=== PATIENT | female | born 2005 | race Hispanic/Latino ===

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

== ENCOUNTER 2024-09-15 00:57 | Emergency (ER) | payer MEDICAID ==
[~2024-09-15] VITALS: Ht 152.4 cm; Wt 75.3 kg
[2024-09-15] MEDS: FAMOTIDINE 20MG VIAL IV ONE (01:24)
[2024-09-15] MEDS: MAG/ALUM/SIMETH 30 ML UDCUP PO ONE (01:24)
[2024-09-15] MEDS: LIDOCAINE HCL 2% VISCOUS 15 ML UDCUP PO ONE (01:24)
[2024-09-15 01:41] LABS: IMMATURE GRANULOCYTE ABSOLUTE 0.01 K/uL (0-1); NUCLEATED RED BLOOD CELLS 0.0 % (0.0-0.19); PLATELET COUNT (AUTO) 342 K/uL (130-400); RED BLOOD CELL COUNT(AUTO) 4.34 MIL/uL (4.00-5.50); RED CELL DISTRIBUTION WIDTH 17.3 % (11.0-15.5); WHITE BLOOD COUNT (AUTO) 7.1 K/uL (4.8-10.8)
[2024-09-15 01:50] LABS: CREATININE 0.5 mg/dL (0.5-1.0); GLOMERULAR FILTR. RATE CALC 138 mL/min (>90); GLUCOSE,RANDOM 125 mg/dL (70-105); SODIUM SERUM 137 mmol/L (136-145); UREA NITROGEN, BLOOD 8 mg/dL (7-18)
[2024-09-15 02:15] LABS: ASPARTATE AMINOTRANSFERASE 16 U/L (10-37); HCG,QUANTITATIVE 51674 mIU/mL (0-5); TOTAL PROTEIN, SERUM 7.1 g/dL (6.0-8.3)
[2024-09-15] MEDS ORDERED: ONDA-243 PO (02:29)
--- NOTE | 2024-09-15 02:29 | ERN ---
General Chief Complaint: OB<20 weeks gest. Stated Complaint: C/O ABD PAIN ; 8 WKS Time Seen by MD: 01:13 Time Seen by Midlevel: 01:13 Source: patient History of Present Illness Initial Comments Patient is a 18-year-old female who is currently a proximally eight weeks presents to the emergency department for evaluation of midepigastric abdominal pain that started just prior to arrival. Patient reports having history of gastritis and reports having similar episodes in the past. She specifically denies any other symptoms. She does admit to eating spicy food prior to arrival. She last saw her OBGYN one week ago and has an ultrasound scheduled for next week. At this time she has not had any ultrasound performed. Allergies: Coded Allergies: No Known Allergies (Unverified Allergy, Unknown, 09/15/24) Past Medical History Past Medical History: No Pertinent History Past Surgical History: None Female( History) LMP: Jul 20, 2024 : 1 Para: 0 Aborts: 0 ROS Dictation CONSTITUTIONAL: Negative except for HPI HEAD/FACE: Negative except for HPI EENT: Negative except for HPI RESPIRATORY: Negative except for HPI GASTROINTESTINAL/ABDOMINAL: Negative except for HPI GENITOURINARY: Negative except for HPI MUSCULOSKELETAL: Negative except for HPI INTEGUMENTARY: Negative except for HPI NEUROLOGICAL/PSYCH: Negative except for HPI HEMATOLOGIC/LYMPHATIC: Negative except for HPI All Systems Negative, Except as noted above. 13 point review of systems assessed and all negative except for above. Physical Exam Physical Exam Dictation Vital Signs reviewed General Appearance: Alert, oriented x 3, no acute distress, well developed, nourished. Head and Face: non-traumatic. Eyes: PERRL, pink conjunctivas, eyelid no trauma, anterior chamber with arcus senilis. Ears: Pinnas intact and no signs of trauma or erythema ear canals clear and no discharge TM no erythema Nose: No discharge, no bleeding. Oropharynx: Mouth normal, tongue pink, pharynx clear,no erythema, tonsils no exudates, no abscesses noted, mucous membrane moist Neck: Supple, non-tender, no thyromegaly, no masses, no JVD, no bruits Breast:Deferred Chest:No tenderness, no crepitus, no paradoxical movement, no retractions Lungs:Clear, well-ventilated, symmetric, no rales, no wheezing, no rhonchi, no stridor, good breath sounds bilaterally Heart: Regular rate, regular rhythm, no murmur, no gallops Vascular: no peripheral edema, Abdomen: Soft, positive bowel sounds, nondistended, no guarding, Midepigastric abdominal tenderness, no rebound, no masses no hepatomegaly, no splenomegaly, no Bartlett's sign, no hernias. Rectal: Deferred Genital: Deferred Neurological: Normal speech, motor function intact, sensory function intact Musculoskeletal: Neck nontender, full range of motion, back nontender, full range of motion, Extremities: nontender, full range of motion Skin: Color pink, dry, no turgor, no rash, no lacerations, no abrasions, no contusions. Lymphatic: Deferred Results Laboratory and Microbiology Lab and Micro Result Laboratory Tests Test 09/15/24 01:32 White Blood Count 7.1 K/uL (4.8-10.8) Red Blood Count 4.34 MIL/uL (4.00-5.50) Hemoglobin 11.8 g/dL (12.0-16.0) L Hematocrit 35.5 % (36-48) L Mean Corpuscular Volume 81.8 fL (80-100) Mean Corpuscular Hemoglobin 27.2 pg (27.0-33.0) Mean Corpuscular Hemoglobin Concent 33.2 g/dL (32.0-36.0) Red Cell Distribution Width 17.3 % (11.0-15.5) H Platelet Count 342 K/uL (130-400) Mean Platelet Volume 10.8 fL (7.5-10.5) H Immature Granulocyte % (Auto) 0.1 % (0-1) Neutrophils (%) (Auto) 55.8 % (40.0-77.0) Lymphocytes (%) (Auto) 32.2 % (21.0-51.0) Monocytes (%) (Auto) 8.5 % (3.0-13.0) Eosinophils (%) (Auto) 2.3 % (0.0-8.0) Basophils (%) (Auto) 1.1 % (0.0-5.0) Neutrophils # (Auto) 3.9 K/uL (1.8-7.7) Lymphocytes # (Auto) 2.3 K/uL (1.0-4.8) Monocytes # (Auto) 0.6 K/uL (0.1-1.0) Eosinophils # (Auto) 0.16 K/uL (0.00-0.70) Basophils # (Auto) 0.08 K/uL (0.00-0.20) Absolute Immature Granulocyte (auto 0.01 K/uL (0-1) Nucleated Red Blood Cells 0.0 % (0.0-0.19) Sodium Level 137 mmol/L (136-145) Potassium Level 3.5 mmol/L (3.5-5.1) Chloride Level 103 mmol/L (101-111) Carbon Dioxide Level 26 mmol/L (21-32) Blood Urea Nitrogen 8 mg/dL (7-18) Creatinine 0.5 mg/dL (0.5-1.0) Glomerular Filtration Rate Calc 138 mL/min (>90) Random Glucose 125 mg/dL (70-105) H Total Calcium 9.0 mg/dL (8.5-10.1) Total Bilirubin 0.2 mg/dL (0.2-1.0) Direct Bilirubin < 0.1 mg/dL (0.0-0.3) Aspartate Amino Transf (AST/SGOT) 16 U/L (10-37) Alanine Aminotransferase (ALT/SGPT) 26 U/L (12-78) Alkaline Phosphatase 59 U/L (50-136) Total Protein 7.1 g/dL (6.0-8.3) Albumin 3.6 g/dL (3.5-5.0) Lipase 83 U/L (16-77) H Human Chorionic Gonadotropin, Quant 00584 mIU/mL (0-5) H Labs Reviewed?: Yes MDM MDM: Patient is a 18-year-old female who is currently a proximally eight weeks presents to the emergency department for evaluation of midepigastric abdominal pain that started just prior to arrival. Patient reports having history of gastritis and reports having similar episodes in the past. She specifically denies any other symptoms. She does admit to eating spicy food prior to arrival. She last saw her OBGYN one week ago and has an ultrasound scheduled for next week. At this time she has not had any ultrasound performed. On physical examination the patient appears to be in [id number] distress secondary to abdominal pain. She has midepigastric abdominal tenderness. Initial vital signs are stable. Patient was given a GI cocktail along with IV Zofran and Pepcid. Abdominal workup was initiated. CBC shows no leukocytosis. Chemistries [place] [address]. Right upper quadrant ultrasound reveals no evidence of acute cholecystitis. Pelvic ultrasound reveals a gestational age measuring proximally six weeks with positive heart tones. This was discussed with the patient. No evidence of pancreatitis or acute cholecystitis at this time. On repeat examination the patient reports feeling significantly improved. Symptoms most likely related to gastritis. Patient advised to follow up with OBGYN as scheduled. Strict return precautions discussed Differential diagnosis: Gastritis, biliary colic, pancreatitis There are no social concerns with this patient. Prescription drug management Prescriptions will include: Zofran Medical management and examination interpretation discussions were had by me with other qualified healthcare professionals as indicated for the patient's care. ED Course Orders Procedure Category Date Status Time Cbc With Differential LAB 09/15/24 Complete 01:13 Basic Metabolic Panel LAB 09/15/24 Complete 01:13 Hepatic Function Panel LAB 09/15/24 Complete 01:13 Lipase LAB 09/15/24 Complete 01:13 Hcg,Quantitative LAB 09/15/24 Complete 01:13 Us Ob <14 Weeks US 09/15/24 Taken 01:13 Us Abdominal Ruq\Ltd US 09/15/24 Taken 01:13 Lidocaine Hcl 2% PHA 09/15/24 Complete Viscous (Lidocaine Hcl 01:30 Mag/Alum/Simeth 30ml PHA 09/15/24 Complete (Maalox Plus 30ml) 01:30 Ondansetron 4mg Inj PHA 09/15/24 Complete (Zofran 4mg Inj) 01:30 Famotidine 20mg Vial PHA 09/15/24 Complete (Pepcid 20mg Vial) 01:30 Current Medications Medications (Trade) Dose Ordered Sig/Moe Route PRN Reason Start Time Stop Time Status Last Admin Dose Admin Al Hydroxide/Mg Hydroxide (MAALox PLUS 30ML) 30 ml ONCE ONCE PO 09/15/24 01:30 09/15/24 01:31 DC 09/15/24 01:24 Famotidine (Pepcid 20mg Vial) 20 mg ONCE ONCE IV 09/15/24 01:30 09/15/24 01:31 DC 09/15/24 01:24 Lidocaine HCl (Lidocaine HCl 2% Viscous) 10 ml ONCE ONCE PO 09/15/24 01:30 09/15/24 01:31 DC 09/15/24 01:24 Ondansetron HCl (zoFRAN 4MG INJ) 4 mg ONCE ONCE IVP 09/15/24 01:30 09/15/24 01:31 DC 09/15/24 01:24 Vital Signs Date Time Temp Pulse Resp B/P (MAP) Pulse Ox O2 Delivery O2 Flow Rate FiO2 09/15/24 01:01 98.2 76 20 140/72 98 Room Air DX & DISP Disposition: Discharge Departure Impression: Primary Impression: Gastritis Additional Impression: First trimester Condition: Stable Scripts Ondansetron (Ondansetron Odt) 4 Mg Tab.rapdis 4 MG PO BID for 7 Days, #14 TAB Prov: SOCRATES LOPEZ 09/15/24 Referrals: GIOVANNY RODRIGUEZ MD (PCP) Time of Disposition: 02:28 I have reviewed the case, and I agree with, Diagnosis and Plan I performed the substantive portion of the visit. I have reviewed and personally made and approve the management plan that is documented in the note by myself or the QUINN. I acknowledge for responsibility for the patient's management plan. SOCRATES LOPEZ Sep 15, 2024 02:29
[2024-09-15 02:46] VITALS: BP 134/67; PULSE 73; RESP 18; TEMP 98.4; O2SAT 99
--- NOTE | 2024-09-15 02:47 | HMCIMG ---
EXAM: US Abdomen, Right Upper Quadrant. CLINICAL HISTORY: Abdominal pain. During TECHNIQUE: Right upper quadrant sonography performed with image documentation. COMPARISON: None provided. FINDINGS: LIVER: The liver measures 14 cm. Increased echogenicity of the liver parenchyma, concerning mild fatty liver. GALLBLADDER: The gallbladder wall thickness measures up to 2 mm. The gallbladder appears contracted (the patient is not NPO). COMMON BILE DUCT: The CBD is normal in caliber and measures up to 4 mm in diameter. PANCREAS: Head: Within normal limits. Body and Tail: Obscured due to abundant gas. RIGHT KIDNEY: The right kidney measures 10 ??? 5.2 ??? 5.3 cm. IMPRESSION: No acute process. Mild fatty liver. The partially contracted gallbladder could be physiological. /[place]
--- NOTE | 2024-09-15 02:58 | HMCIMG ---
EXAM: US Obstetrical, Complete <14 weeks CLINICAL HISTORY: Abdominal pain during TECHNIQUE: Transabdominal imaging of the maternal pelvis and a <14 week gestation with image documentation. COMPARISON: None provided. FINDINGS: GESTATION: There is a single live intrauterine gestation with a gestational age of 6 weeks and 3 days. The gestational sac measures 2.01 cm, corresponding with a gestational age of 6 weeks and 6 days. The CRL measures 0.40 cm, corresponding with a gestational age of 6 weeks and 1 day. The heart rate measures at 140 bpm. UTERUS: Unremarkable. No myometrial mass. The uterus measures 10 x 5.2 x 5.5 cm. CERVIX: Closed. Unremarkable. OVARIES: The right ovary is obscured due to bowel gases. The left ovary measures 1.6 x 1.3 x 1.6 cm with positive flow within the left ovary. FREE FLUID: No free fluid. IMPRESSION: A single live intrauterine gestation with a gestational age of 6 weeks and 3 days. The cardiac activity measures at 140 bpm. /[place]
== END 2024-09-15 02:48 | disposition home or self-care (01) ==
LOC: EDH 00:57
DX: O99.611 Diseases of the digestive system complicating pregnancy, first trimester (principal); K29.70 Gastritis, unspecified, without bleeding; O26.891 Other specified pregnancy related conditions, first trimester; R10.2 Pelvic and perineal pain; Z3A.01 Less than 8 weeks gestation of pregnancy
CPT/HCPCS: 99285; 96374; 76705; 76801; 96375; 80076; 80048; 84702; 83690; 85025; 36415; J3490; J2405

== ENCOUNTER 2024-10-31 15:54 | Emergency (ER) | payer MEDICAID ==
[~2024-10-31] VITALS: Ht 149.9 cm; Wt 73.9 kg
[~2024-10-31 15:54] MED LIST: ONDA-243 PO
[2024-10-31 15:56] VITALS: BP 115/76; PULSE 82; RESP 20; TEMP 97.9
[2024-10-31 16:19] LABS: HCG,QUALITATIVE URINE POSITIVE (NEGATIVE)
[2024-10-31 16:22] LABS: APPEARANCE,URINE CLEAR (CLEAR); GLUCOSE, URINE (UA) NEGATIVE (NEGATIVE); LEUKOCYTE ESTERASE ,URINE NEGATIVE Leu/uL (NEGATIVE); NITRATE,URINE NEGATIVE (NEGATIVE); OCCULT BLOOD,URINE NEGATIVE (NEGATIVE); SQUAMOUS EPITHELIAL CELL,UR RARE /HPF (0-2)
[2024-10-31 16:34] LABS: IMMATURE GRANULOCYTE ABSOLUTE 0.03 K/uL (0-1); NUCLEATED RED BLOOD CELLS 0.0 % (0.0-0.19); PLATELET COUNT (AUTO) 309 K/uL (130-400); RED BLOOD CELL COUNT(AUTO) 4.43 MIL/uL (4.00-5.50); RED CELL DISTRIBUTION WIDTH 15.7 % (11.0-15.5); WHITE BLOOD COUNT (AUTO) 9.1 K/uL (4.8-10.8)
[2024-10-31 16:41] LABS: CREATININE 0.4 mg/dL (0.5-1.0); GLOMERULAR FILTR. RATE CALC 146.0 mL/min (>90); GLUCOSE,RANDOM 88.0 mg/dL (70-105); SODIUM SERUM 135.0 mmol/L (136-145); UREA NITROGEN, BLOOD 6.0 mg/dL (7-18)
--- NOTE | 2024-10-31 17:08 | ERN ---
General Chief Complaint: Abdominal Pain in Stated Complaint: ABDOMINAL PAIN IN 14 WEEKS Time Seen by MD: 15:56 Source: patient History of Present Illness Initial Comments Patient is a 18-year-old female coming in complaining of lower abdominal discomfort. Per patient she is a at 14 weeks by date and states he tripped earlier today in his having lower abdominal discomfort. No vaginal bleed. Allergies: Coded Allergies: No Known Allergies (Unverified Allergy, Unknown, 09/15/24) Home Meds Active Scripts Ondansetron (Ondansetron Odt) 4 Mg Tab.rapdis, 4 MG PO BID for 7 Days, #14 TAB Prov:SOCRATES LOPEZ 09/15/24 Past Medical History Past Medical History: No Pertinent History Past Surgical History: None Female( History) LMP: Jul 20, 2024 : 1 Para: 0 Aborts: 0 ROS Dictation CONSTITUTIONAL: No chills, no fever, no weakness, no diaphoresis, no malaise. HEAD/FACE: No signs of trauma. EENT: No eye pain, no blurred vision, no tearing, no double vision, no ear pain, no ear discharge, no nose pain, no nasal congestion, no throat pain, no throat swelling, no mouth pain. RESPIRATORY: No cough, no orthopnea, no SOB, no stridor, no wheezing. CARDIOVASCULAR: No chest pain, no edema, no palpitations, no syncope. GASTROINTESTINAL/ABDOMINAL: abdominal pain, no constipation, no diarrhea, no nausea, no vomiting. GENITOURINARY: No abnormal discharge, no dysuria, no frequent urination, no hematuria. No complaints of pain in the genitals. MUSCULOSKELETAL: No back pain, no gout, no joint pain, no joint swelling, no muscle pain, no muscle stiffness, no neck pain. INTEGUMENTARY: No change in color, no change in hair/nails, no dryness, no lesion, no lumps, no rash. NEUROLOGICAL/PSYCH: No anxiety, not depressed, no emotional problem, no headache, no numbness, no pre-existing deficit, no history of seizures, no tremors, no weakness. HEMATOLOGIC/LYMPHATIC: Not anemic, no history of blood clots, no apparent bleeding, no bruising, glands not swollen. All Systems Negative, Except as Noted. Physical Exam Physical Exam Dictation VITAL SIGNS: Reviewed. GENERAL APPEARANCE: Alert, oriented x3, no acute distress, obese. HEAD AND FACE: Non-traumatic. EYES: PERRL, pink conjunctivas, eyelid no trauma, anterior chamber clear. EARS: Pinnas intact and no signs of trauma or erythema. Ear canals clear and no discharge. TMs no erythema. NOSE: No discharge, no bleeding. OROPHARYNX: Mouth normal, teeth no caries, tongue pink. Pharynx clear, no erythema. Tonsils no exudates, no abscesses noted. Mucous membrane moist. NECK: Supple, non-tender, no thyromegaly, no masses, no JVD, no bruits. BREAST: Deferred. CHEST: No tenderness, no crepitus, no paradoxical movement, no retractions. LUNGS: Clear, well-ventilated, symmetric, no rales, no wheezing, no rhonchi, no stridor, good breath sounds bilaterally. HEART: Regular rate, regular rhythm, no murmur, no gallops. VASCULAR: No peripheral edema. ABDOMEN: Soft, positive bowel sounds, nondistended, no guarding, lower abdominal discomfort, no rebound, no masses no hepatomegaly, no splenomegaly, no Bartlett's sign, no hernias. RECTAL: Deferred. GENITAL: Deferred. NEUROLOGICAL: Normal speech, gross motor function intact, gross sensory function intact. MUSCULOSKELETAL: Neck nontender, full range of motion, back nontender, full range of motion. EXTREMITIES: Nontender, full range of motion. SKIN: Color pink, dry, no turgor, no rash, no lacerations, no abrasions, no contusions. LYMPHATICS: Deferred. Results Laboratory and Microbiology Lab and Micro Result Laboratory Tests Test 10/31/24 16:10 10/31/24 16:27 Urine Color LIGHT-YELLOW (YELLOW) Urine Appearance CLEAR (CLEAR) Urine pH 6.5 (5.0-8.0) Urine Specific [place] 1.016 (1.001-1.031) Urine Protein NEGATIVE mg/dL (NEGATIVE) Urine Glucose (UA) NEGATIVE mg/dL (NEGATIVE) Urine Ketones NEGATIVE mg/dL (NEGATIVE) Urine Occult Blood NEGATIVE (NEGATIVE) Urine Nitrate NEGATIVE (NEGATIVE) Urine Bilirubin NEGATIVE mg/dL (NEGATIVE) Urine Urobilinogen 0.2 mg/dL (0.2-1.0) Urine Leukocyte Esterase NEGATIVE Beck/uL Urine RBC 0-1 /HPF (0-1) Urine WBC 0-1 /HPF (0-1) Urine Squamous Epithelial Cells RARE /HPF (0-2) Urine Bacteria None /HPF (None Seen) Urine HCG, Qualitative POSITIVE (NEGATIVE) H White Blood Count 9.1 K/uL (4.8-10.8) Red Blood Count 4.43 MIL/uL (4.00-5.50) Hemoglobin 12.3 g/dL (12.0-16.0) Hematocrit 36.7 % (36-48) Mean Corpuscular Volume 82.8 fL (80-100) Mean Corpuscular Hemoglobin 27.8 pg (27.0-33.0) Mean Corpuscular Hemoglobin Concent 33.5 g/dL (32.0-36.0) Red Cell Distribution Width 15.7 % (11.0-15.5) H Platelet Count 309 K/uL (130-400) Mean Platelet Volume 11.3 fL (7.5-10.5) H Immature Granulocyte % (Auto) 0.3 % (0-1) Neutrophils (%) (Auto) 69.8 % (40.0-77.0) Lymphocytes (%) (Auto) 18.8 % (21.0-51.0) L Monocytes (%) (Auto) 8.7 % (3.0-13.0) Eosinophils (%) (Auto) 2.1 % (0.0-8.0) Basophils (%) (Auto) 0.3 % (0.0-5.0) Neutrophils # (Auto) 6.4 K/uL (1.8-7.7) Lymphocytes # (Auto) 1.7 K/uL (1.0-4.8) Monocytes # (Auto) 0.8 K/uL (0.1-1.0) Eosinophils # (Auto) 0.19 K/uL (0.00-0.70) Basophils # (Auto) 0.03 K/uL (0.00-0.20) Absolute Immature Granulocyte (auto 0.03 K/uL (0-1) Nucleated Red Blood Cells 0.0 % (0.0-0.19) Sodium Level 135 mmol/L (136-145) L Potassium Level 3.9 mmol/L (3.5-5.1) Chloride Level 102 mmol/L (101-111) Carbon Dioxide Level 25 mmol/L (21-32) Blood Urea Nitrogen 6 mg/dL (7-18) L Creatinine 0.4 mg/dL (0.5-1.0) L Glomerular Filtration Rate Calc 146 mL/min (>90) Random Glucose 88 mg/dL (70-105) Total Calcium 9.3 mg/dL (8.5-10.1) Human Chorionic Gonadotropin, Quant 96009 mIU/mL (0-5) H Labs Reviewed?: Yes EKG/XRAY/US/CT/MRI Ultrasound Comment OB ultrasound less than 14 weeks= composite age 15 weeks three days, SHAWN 7.32, bpm 157, MDM MDM: Differential diagnosis: , fall, wellness exam Rationale: Tests considered and ordered secondary to shared decision making include: Previous outside records reviewed: Old ER visits. Risk of complication and/or morbidity or mortality of patient management: None Medications-Per medication reconciliation Need for hospitalization: Patient does not meet criteria for hospitalization. Need for emergency major/minor surgery: No Patient is a 18-year-old female G1 P 0 at 14 weeks by date coming in due to a fall. Laboratory and ultrasound within normal limits. I did advised her appropriate follow up with PCP for long-term management. ED Course Orders Procedure Category Date Status Time Cbc With Differential LAB 10/31/24 Complete 15:56 Basic Metabolic Panel LAB 10/31/24 Complete 15:56 Urinalysis LAB 10/31/24 Complete W/Microscopic 15:56 Hcg,Quantitative LAB 10/31/24 Complete 15:56 ,Urine Test LAB 10/31/24 Complete 15:56 Us Ob <14 Weeks US 10/31/24 Taken 16:53 Vital Signs Date Time Temp Pulse Resp B/P (MAP) Pulse Ox O2 Delivery O2 Flow Rate FiO2 10/31/24 15:56 97.9 82 20 115/76 98 Room Air DX & DISP Disposition: Discharge Departure Impression: Primary Impression: First trimester Additional Impression: Fall Condition: Stable Additional Instructions: FOLLOW-UP WITH PRIMARY CARE PROVIDER IN 1 TO 2 DAYS. TAKE MEDICATIONS DIRECTED HERE IN THE EMERGENCY ROOM. OKAY TO CONTINUE HOME MEDICATIONS UNLESS OTHERWISE DISCUSSED DURING YOUR VISIT IN THE EMERGENCY ROOM TODAY. RETURN TO YOUR NEAREST EMERGENCY ROOM IF SYMPTOMS WORSEN OR IF THERE IS NO IMPROVEMENT. CALL 911 IF YOU NEED IMMEDIATE ASSISTANCE. TAKE TYLENOL [id number] NEEDED AND IF NO CONTRAINDICATIONS ARE PRESENT. INCREASE ORAL HYDRATION. A WOUND CULTURE OR URINE CULTURE WAS ORDERED HERE IN THE EMERGENCY ROOM DEPARTMENT PLEASE FOLLOW-UP WITH PRIMARY CARE PROVIDER AND ADVISE THEM TO GET REPORTS FROM OUR FACILITY. IF YOU HAD ANY LASHON WRAP/SPLINTS THAT WERE APPLIED HERE, PLEASE DO NOT REMOVE THEM UNTIL YOU SEE YOUR PRIMARY CARE OR SPECIALTY. Referrals: Referrals: ALETA DIAZ JR, MD (PCP) Time of Disposition: 18:01 AGUSTINA GUZMAN MD Oct 31, 2024 17:08
[2024-10-31 17:11] LABS: HCG,QUANTITATIVE 70313.0 mIU/mL (0-5)
--- NOTE | 2024-10-31 18:16 | NUR ---
PT BROUGHT IN TO TRIAGE AT THIS TIME FOR DC INSTRUCTIONS.
--- NOTE | 2024-10-31 19:10 | HMCIMG ---
EXAM: US Obstetrical, Complete >14 weeks. CLINICAL HISTORY: Fall. TECHNIQUE: Transabdominal imaging of the maternal pelvis and a >14 week gestation with image documentation. COMPARISON: None provided. FINDINGS: FETUS: There is a single living intrauterine gestation. POSITION: position is cephalic. HEART RATE: The heart rate is 157 beats per minute. BIOMETRICS: * Biparietal diameter: 2.56 cm, 14 weeks 3 days. * Head circumference: 9.87 cm, 14 weeks 4 days. * Abdominal circumference: 8.15 cm, 14 weeks 4 days. * Femoral length: 1.43 cm, 14 weeks 7 days. Based on composite biometry, the estimated gestational age by ultrasound is 14 weeks 3 days. ANATOMIC SURVEY: The visualized anatomy is unremarkable. PLACENTA: The placenta is posterior. No sonographic evidence of previa or abruption. AMNIOTIC FLUID: Within normal limits. CERVIX: Closed. Unremarkable as visualized. IMPRESSION: Single viable intrauterine of 14 weeks 3 days. Posterior placenta with no evidence of previa or abruption. No acute abnormality. /[place]
== END 2024-10-31 18:18 | disposition home or self-care (01) ==
LOC: EDH 15:54
DX: O26.892 Other specified pregnancy related conditions, second trimester (principal); R10.9 Unspecified abdominal pain; R10.2 Pelvic and perineal pain; Z3A.14 14 weeks gestation of pregnancy; W01.0XXA Fall on same level from slipping, tripping and stumbling without subsequent striking against object, initial encounter; Y93.89 Activity, other specified; Y92.89 Other specified places as the place of occurrence of the external cause; Y99.8 Other external cause status
CPT/HCPCS: 36415; 76801; 80048; 81001; 81025; 84702; 85025; 99284